=== PATIENT | female | born 1970 | race Caucasian/White ===

== ENCOUNTER 2023-07-23 12:10 | Emergency (ER) | payer OTHER, SELFPAY ==
[2023-07-23 12:39] VITALS: BP 139/71; BMI 22.1
[2023-07-23] MEDS: MOTRIN 600 MG PO (13:16)
--- NOTE | 2023-07-23 13:17 | ED.MUSCINJ ---
HPI-Injury
General
Chief Complaint: Fall
Source: patient
Exam Limitations: none
Time Seen by Provider: 07/23/23 13:01
Travel History
Have you had any contact with someone who has COVID-19?: No
Do you have any symptoms of coronavirus? Fever > 100 degrees, chills, cough, shortness of breath, sore throat, loss of taste or smell, muscle aches, or headache?: No
History of Present Illness-Injury
Initial Injury comments:
52-year-old [id number] female presents complaining of left shoulder pain starting today. She slipped down her fire escape and landed on her left arm. She drove her self here. Did not hit her head. She denies neck or back pain. No other
complaints at this time
Phy Exam
Physical Exam
Physical Exam:
General: Well-appearing female no acute distress
Musculoskeletal exam: Spine is nontender. She is tender about the left superior shoulder without significant deformity. She is also slightly tender over the lateral left elbow with overlying abrasion. Good range of motion left wrist
Vascular: 2+ radial pulse left wrist
Neurologic: Good sensation left arm alert and oriented otherwise
Injury Course
Orders/Labs/Results
Orders:
Orders
07/23/23 12:43
CR Shoulder, Trauma - Left Stat
Reason For Exam: pain
Clavicle, Left Complete CR [CR Clavicle - Left Complete ] Stat
Comment:
Reason For Exam: pain
07/23/23 13:13
Ibuprofen [Motrin] 600 mg PO NOW STA
MDM/Problems Addressed
Differential Diagnosis Includes:
Left shoulder pain after fall. Consider fracture versus dislocation versus contusion
I personally visualized x-rays of the left clavicle and shoulder which demonstrate distal clavicular fracture slightly displaced without associated glenohumeral joint injury or dislocation.
Patient placed in a sling will be advised follow-up with orthopedics for further evaluation
*Critical Care Note
Total Time (30-74mins, 75-104mins- exclusive of procedures): Not Applicable
ED Attending Note
-
Portions of this chart may have been created with voice recognition software.� Occasional wrong word or��sound alike� substitutions may have occurred due to the inherent limitations of voice recognition software.
Discharge Plan
Departure
Patient Disposition: Home (Routine Discharge)
Date of Disposition: 07/23/23
Time of Disposition: 13:19
Patient with high blood pressure during this ER visit?: No
Discharge Problem:
Clavicle fracture
Instructions: Muscle and Bone Pain (DC)
Prescriptions:
New
hydrocodone-acetaminophen 5-325 mg tablet
1 tab PO Q8H PRN (Reason: Pain) Qty: 10 0RF
Activity Restrictions/Additional Instructions:
Use sling for support. Take pain medicine as needed for severe pain. Return for worsening symptoms otherwise follow-up with orthopedics.
Interventions
Interventions:
*Risk Screen - Suicide Last Done: 07/23/23 12:39
*Neglect/Abuse Screening Last Done: 07/23/23 12:39
*ED COVID-19 Vaccine History Last Done: 07/23/23 12:39
== END 2023-07-23 13:44 | disposition home or self-care (01) ==
LOC: EMR 12:10
PROVIDERS: EMERGENCY PHYSICIAN Emergency Medicine
DX: S42.032A Displaced fracture of lateral end of left clavicle, initial encounter for closed fracture (principal); W01.0XXA Fall on same level from slipping, tripping and stumbling without subsequent striking against object, initial encounter
CPT/HCPCS: 99283; 73000; 73030

== ENCOUNTER → 2023-09-15 16:38 | Outpatient (REF) | payer BC, SELFPAY ==
[2023-09-15 17:38] LABS: % Basophils 0.4 % (0-2); % Eosinophils 1.3 % (0-6); % Immature Granulocytes 0.1 % (0-0.5); % Monocytes 6.4 % (1.7-9.3); % Neutrophils 60.8 % (42.2-75.2); Absolute Eosinophils 0.1 10^3/uL (0-0.7); Absolute Lymphocytes 2.1 10^3/uL (1.2-3.4); Absolute Monocytes 0.4 10^3/uL (0.1-0.6); Absolute Neutrophils 4.2 10^3/uL (1.4-6.5); Hematocrit 39.3 % (37.0-47.0); Hemoglobin 13.5 g/dL (12.0-16.0); Mean Corp Hgb Conc. 34.4 g/dL (33.0-37.0); Mean Corpuscular Hgb 30.9 pg (27.0-31.0); Mean Corpuscular Volume 89.9 fL (81.0-99.0); Mean Platelet Volume 9.2 fL (7.4-10.4); Nucleated Red Blood Cells % 0 %; Platelet Count 368 10^3/uL (130-400); Red Blood Cell Count 4.37 10^6/uL (4.20-5.40); White Blood Cell Count 6.8 10^3/uL (4.8-10.8)
[2023-09-15 18:01] LABS: ALT (SGPT) 19 U/L (0-35); AST (SGOT) 25 U/L (14-36); Albumin 4.6 g/dl (3.5-5.0); Alkaline Phosphatase 77 U/L (38-126); Blood Urea Nitrogen 9 mg/dl (7-17); Calcium 9.8 mg/dl (8.4-10.2); Carbon Dioxide 29 mmol/L (22-30); Chloride 98 mmol/L (98-107); Glucose 69 mg/dl (70-99); Sodium 137 mmol/L (135-145); Total Bilirubin 0.7 mg/dl (0.2-1.3); Total Protein 7.2 g/dl (6.3-8.2); eGFR > 60.00
[2023-09-15 18:31] LABS: TSH 0.97 uIU/ml (0.47-4.68)
== END ==
LOC: REG 16:38
PROVIDERS: ATTENDING PHYSICIAN Surgery Plastic and Reconstructive Surgery; FAMILY PHYSICIAN Psychiatry & Neurology Psychiatry
DX: Z01.818 Encounter for other preprocedural examination (principal); G47.00 Insomnia, unspecified; F43.10 Post-traumatic stress disorder, unspecified; F32.A Depression, unspecified
CPT/HCPCS: 36415; 80053; 84443; 85025; 93005

== ENCOUNTER → 2023-09-27 11:21 | Outpatient (REF) | payer BC, SELFPAY | LOC: CLAB 11:21 | PROVIDERS: ATTENDING PHYSICIAN Surgery Plastic and Reconstructive Surgery | DX: Z01.818 Encounter for other preprocedural examination (principal); G47.09 Other insomnia | CPT/HCPCS: 88304 ==